=== PATIENT | male | born 1985 | race Two or more races ===

== ENCOUNTER 2024-05-08 23:19 | Emergency (ER) | payer SELFPAY ==
[2024-05-09] MEDS ORDERED: ONDANSETRON 4 MG/2 ML VIAL ONE (00:04)
[2024-05-09] MEDS ORDERED: MAGNES/ALUMIN/SIMET 30ML UCUP ONE (00:04)
[2024-05-09] MEDS ORDERED: LIDOCAINE VISCOUS 2% 10ML ORAL SOLN ONE (00:05)
[2024-05-09] MEDS ORDERED: NA CHLORIDE 0.9% 1,000 ML ONE (00:05)
[2024-05-09] MEDS ORDERED: FAMOTIDINE 20 MG/2 ML VIAL IV ONE (00:05)
[2024-05-09 00:15] LABS: Absolute Basophils 0.1 K/uL (0-0.5); Absolute Eosinophils 0.4 K/uL (0-0.5); Absolute Lymphocytes (CBC) 3.8 K/uL (0.7-4.9); Absolute Monocytes 0.8 K/uL (0.1-1.3); Absolute Neutrophil 4.6 K/uL (1.8-8.0); Basophils % 0.9 % (0-1.3); Eosinophils % 4.1 % (0-4.4); Hematocrit 46.8 % (39.6-49.0); Hemoglobin 15.5 g/dL (13.6-17.9); MCH 32.2 pg (27.0-35.0); MCHC 33.2 g/dL (32.0-36.0); Monocytes % 8.1 % (3.3-12.3); Neutrophils % 47.9 % (41.7-73.7); Platelets 180 thou/uL (152-406); RBC Red Blood Cell Count 4.83 M/uL (4.33-5.43); Red Cell Distribution Width 12.3 % (12.1-15.2); Specific Gravity < 1.005 (1.005-1.030); Urine Bilirubin NEGATIVE (Negative); Urine Blood Negative (Negative); Urine Clarity Clear (Clear); Urine Color Colorless (Yellow); Urine Glucose NEGATIVE (Negative); Urine Ketones NEGATIVE (Negative); Urine Microscopic Reflex YN NO UMIC; Urine Nitrite NEGATIVE (Negative); Urine Protein NEGATIVE (Negative); Urine Urobilinogen Normal (Normal); Urine pH 7.5 (5.0-7.0)
[2024-05-09 00:31] LABS: Albumin 4.2 g/dL (3.4-5.0); Albumin/Globulin Ratio 1.1 (1.1-1.8); Anion Gap 6.5 mEq/L (5.0-15.0); Bilirubin Total 0.9 mg/dL (0.2-1.0); Globulin 3.8 g/dL (2.3-3.5); Potassium 3.5 mEq/L (3.5-5.1)
--- NOTE | 2024-05-09 02:22 | RAD REPORT ---
EXAM: CT Abdomen and Pelvis With Intravenous Contrast CLINICAL HISTORY: Abd pain. TECHNIQUE: Axial computed tomography images of the abdomen and pelvis with intravenous contrast. Sagittal and coronal reformatted images were created and reviewed. This CT exam was performed using one or more of the following dose reduction techniques: automated exposure control, adjustment of the mA a nd/or kV according to patient size, and/or use of iterative reconstruction technique. COMPARISON: No relevant prior studies available. FINDINGS: Lung bases: Unremarkable. No mass. No consolidation. ABDOMEN: Liver: The liver is diffusely low in density compatible with steatosis. Gallbladder and bile ducts: Unremarkable. No calcified stones. No ductal dilation. Pancreas: Unremarkable. No mass. No ductal dilation. Spleen: Unremarkable. No splenomegaly. Adrenals: Unremarkable. No mass. Kidneys and ureters: Unremarkable. Normal renal cortical enhancement. No calculi. No hydronephros is. Stomach and bowel: Moderate stool. No bowel obstruction. No appreciable mucosal thickening. PELVIS: Appendix: Normal caliber appendix. No findings to suggest acute appendicitis. Bladder: The urinary bladder is distended. Reproductive: Unremarkable as visualized. ABDOMEN and PELVIS: Intraperitoneal space: Unremarkable. No free air. No significant fluid collection. Bones/joints: No acute fracture. No dislocation. Soft tissues: Small fat-containing umbilical and left inguinal hernias. Vasculature: Unremarkable. No abdominal aortic aneurysm. Lymph nodes: Unremarkable. No enlarged lymph nodes. IMPRESSION: 1. No acute inflammatory process identified within the abdomen and pelvis. 2. Other findings as above. Electronically signed by: Shi Jaramillo MD 05/09/2024 02:12 AM [email or web address] Due to temporary technical issues with the PACS/[employer] reporting system, reports are being mikey d by the in-house radiologist without review as a courtesy to ensure prompt reporting the interpreting radiologist is fully responsible for the content of the report. Transcribed Date/Time: 05/09/2024 6:48 AM
--- NOTE | 2024-05-09 02:31 | ER ---
Nurse's Notes [facility] Name: Stoney Aldrich Age: 38 yrs Sex: Male : 1985 Arrival Date: 05/08/2024 Time: 23:19 Bed 4 Private MD: Diagnosis: Epigastric pain Presentation: 05/08 23:45 Chief complaint: Patient states: left sided abdominal pain, sore throat, and vomiting lg3 X5 days. Coronavirus screen: Client denies travel out of the [place] in the last 14 days. At this time, the client does not indicate any symptoms associated with coronavirus-19. Ebola Screen: No symptoms or risks identified at this time. Risk Assessment: Do you want to hurt yourself or someone else? Patient reports no desire to harm self or others. Onset of symptoms was May 03, 2024. 23:45 Method Of Arrival: Ambulatory lg3 23:45 Acuity: RANDOLPH 3 lg3 05/09 00:24 Initial Sepsis Screen: Does the patient meet any 2 criteria? No. Patient's initial al5 sepsis screen is negative. Does the patient have a suspected source of infection? No. Patient's initial sepsis screen is negative. Triage Assessment: 05/08 23:47 General: Appears in no apparent distress. comfortable, Behavior is calm, cooperative. lg3 Pain: Complains of pain in left upper quadrant and left lower quadrant. EENT: No deficits noted. Reports pain when swallowing. Neuro: No deficits noted. [place]aver Agitation-Sedation Scale (RASS): 0 - Alert and Calm Level of Consciousness is awake, alert, obeys commands, Oriented to person, place, time, situation. Cardiovascular: No deficits noted. Denies chest pain, shortness of breath, Capillary refill < 3 seconds Clubbing of nail beds is absent JVD is absent Patient's skin is warm and dry. Respiratory: No deficits noted. Airway is patent Respiratory effort is even, unlabored, Respiratory pattern is regular, symmetrical. GI: Abdomen is round non-distended, Reports lower abdominal pain, upper abdominal pain, cramping, nausea, vomiting. : No deficits noted. No signs and/or symptoms were reported regarding the genitourinary system. Derm: No deficits noted. No signs and/or symptoms reported regarding the dermatologic system. Skin is intact, is healthy with good turgor, Skin is dry, Skin is normal, Skin temperature is warm. Musculoskeletal: No deficits noted. No signs and/or symptoms reported regarding the musculoskeletal system. Circulation, motion, and sensation intact. Range of motion: intact in all extremities. Historical: - Allergies: 23:47 No Known Allergies; lg3 - Home Meds: 23:47 None [Active]; lg3 - PMHx: 23:47 None; lg3 - PSHx: 23:47 None; lg3 - Immunization history:: Adult Immunizations up to date. - Infectious Disease History:: Denies. - Social history:: Smoking status: Patient denies any tobacco usage or history of. Patient/guardian denies using alcohol, street drugs. - Family history:: not pertinent. Screenin/08 00:23 [facility] ED Fall Risk Assessment (Adult) History of falling in the last 3 months, al5 including since admission No falls in past 3 months (0 pts) Confusion or Disorientation No (0 pts) Intoxicated or Sedated No (0 pts) Impaired Gait No (0 pts) Mobility Assist Device Used No (0 pt) Altered Elimination No (0 pt) Score/Fall Risk Level 0 - 2 = Low Risk Oriented to surroundings, Maintained a safe environment, Hourly rounding (assess needs \T\ fall precautionary measures) done. Abuse screen: Denies threats or abuse. Denies injuries from another. Nutritional screening: No deficits noted. Tuberculosis screening: No symptoms or risk factors identified. Assessment: 00:20 General: Appears in no apparent distress. Behavior is calm, cooperative. Pain: al5 Complains of pain in left lower quadrant and left upper quadrant. Neuro: Level of Consciousness is awake, alert, obeys commands, Oriented to person, place, time, situation. Cardiovascular: Capillary refill < 3 seconds Patient's skin is warm and dry. Respiratory: Airway is patent Respiratory effort is even, unlabored, Respiratory pattern is regular, symmetrical. GI: Abdomen is flat, non-distended. GI: Reports L sided abdominal pain. : No signs and/or symptoms were reported regarding the genitourinary system. EENT: No signs and/or symptoms were reported regarding the EENT system. Derm: Skin is intact, Skin is pink, warm \T\ dry. normal. Musculoskeletal: No signs and/or symptoms reported regarding the musculoskeletal system. 01:47 Reassessment: Patient appears in no apparent distress at this time. Patient and/or al5 family updated on plan of care and expected duration. Pain level reassessed. Patient is alert, oriented x 3, equal unlabored respirations, skin warm/dry/pink. Patient states feeling better. 02:50 Reassessment: Patient appears in no apparent distress at this time. No changes from al5 previously documented assessment. Patient and/or family updated on plan of care and expected duration. Pain level reassessed. Patient is alert, oriented x 3, equal unlabored respirations, skin warm/dry/pink. Vital Signs: 00:18 BP 148 / 98; Pulse 75; Resp 18; Pulse Ox 99% on R/A; al5 00:20 Temp 98.2; Weight 90.72 kg; Height 5 ft. 10 in. ; al5 00:30 BP 137 / 86; Pulse 79; Resp 18; Pulse Ox 98% on R/A; al5 01:04 BP 126 / 79; Pulse 75; Resp 18; Pulse Ox 96% on R/A; al5 01:30 BP 111 / 69; Pulse 70; Resp 18; Pulse Ox 95% on R/A; al5 02:00 BP 117 / 73; Pulse 56; Resp 18; Pulse Ox 97% on R/A; al5 02:30 BP 132 / 93; Pulse 68; Resp 18; Pulse Ox 98% on R/A; al5 00:20 Body Mass Index 28.70 (90.72 kg, 177.8 cm) al5 ED Course: 05/08 23:26 Patient arrived in ED. gm2 23:26 Tyson Miramontes MD is Attending Physician. rt 23:47 Triage completed. lg3 23:47 Arm band placed on right wrist. lg3 05/09 00:17 Treasure Erickson, BERNIE is Primary Nurse. al5 00:23 Patient has correct armband on for positive identification. Bed in low position. Call al5 light in reach. Side rails up X 1. Provided Education on: plan of care. Warm blanket given. 00:24 No provider procedures requiring assistance completed. Inserted saline lock: 20 gauge al5 in right antecubital area, using aseptic technique. Blood collected. Flushed with 10 mL NS. 00:49 CT Abd/Pelvis - IV Contrast Only In Process Unspecified. EDMS 02:30 Oleg Sandoval MD is Referral Physician. rt 02:53 IV discontinued, intact, bleeding controlled, No redness/swelling at site. Pressure al5 dressing applied. Administered Medications: 00:17 Drug: NS 0.9% IV 1000 ml IV at 1 bolus Per protocol; 1000 mL bolus Route: IV; Rate: 1 al5 bolus; Site: right antecubital; 01:47 Follow up: Response: No adverse reaction; IV Status: Completed infusion; IV Intake: al5 1000ml 00:18 Drug: Famotidine IVP 20 mg IVP once; dilute with 10 mL 0.9% NaCl; give over 2 minutes al5 Route: IVP; Site: right antecubital; :47 Follow up: Response: No adverse reaction; Pain is decreased al5 00:18 Drug: GI Cocktail without - (Maalox PO 30 ml, Lidocaine Mucous Membrane 2 % 15 al5 ml) PO once Route: PO; 01:47 Follow up: Response: No adverse reaction; Pain is decreased al5 00:18 Drug: Ondansetron IVP 4 mg IVP once; over 2 minutes Route: IVP; Site: right antecubital;al5 01:47 Follow up: Response: No adverse reaction; Nausea is decreased al5 Medication: 00:24 VIS not applicable for this client. al5 Intake: 01:47 IV: 1000ml; Total: 1000ml. al5 Outcome: 02:30 Discharge ordered by . rt 02:53 Discharged to home ambulatory, al5 02:53 Condition: good 02:53 Discharge instructions given to patient, Instructed on discharge instructions, follow up and referral plans. medication usage, Demonstrated understanding of instructions, follow-up care, medications, Prescriptions given X 3, 02:53 Patient left the ED. al5 Signatures: Dispatcher [employer] EDMS Sandrita Zaidi RN RN lg3 Tyson Miramontes MD MD rt Leonila Mcfarlane gm2 Treasure Erickson RN RN al5
--- NOTE | 2024-05-09 02:31 | EDPHYS ---
Physician Documentation [facility] Name: Stoney Aldrich Age: 38 yrs Sex: Male : 1985 Arrival Date: 05/08/2024 Time: 23:19 Bed 4 Private MD: ED Physician Tyson Miramontes HPI: 05/09 00:12 This 38 yrs old [place] Male presents to ER via Ambulatory with complaints of Left rt side abd pain. 00:12 History is limited due to language barrier. Attempted to obtain the [place] rt credit charge authorizer the credit charge authorizer iPad, however, they stated that they had no [place] credit charge authorizer is available. Patient is unable to understand basic Serbian. Reports that for the past 5 days he has had a left-sided abdominal pain with nausea and vomiting as well as a sore throat. Denies other acute complaints at this time. Symptoms are moderate in severity, no other aggravating elevating factors.. Historical: - Allergies: 05/08 23:47 No Known Allergies; lg3 - Home Meds: 23:47 None [Active]; lg3 - PMHx: 23:47 None; lg3 - PSHx: 23:47 None; lg3 - Immunization history:: Adult Immunizations up to date. - Infectious Disease History:: Denies. - Social history:: Smoking status: Patient denies any tobacco usage or history of. Patient/guardian denies using alcohol, street drugs. - Family history:: not pertinent. ROS: 05/09 00:12 Constitutional: Negative for fever, chills, and weight loss, Cardiovascular: Negative rt for chest pain, palpitations, and edema, Respiratory: Negative for shortness of breath, cough, wheezing, and pleuritic chest pain, MS/Extremity: Negative for injury and deformity, Skin: Negative for injury, rash, and discoloration, Neuro: Negative for headache, weakness, numbness, tingling, and seizure, Abdomen/GI: Positive for abdominal pain, nausea and vomiting, Exam: 00:12 Constitutional: This is a well developed, well nourished patient who is awake, alert, rt and in no acute distress. Head/Face: Normocephalic, atraumatic. Chest/axilla: Normal chest wall appearance and motion. Nontender with no deformity. No lesions are appreciated. Cardiovascular: Regular rate and rhythm with a normal S1 and S2. No gallops, murmurs, or rubs. Normal PMI, no JVD. No pulse deficits. Respiratory: Lungs have equal breath sounds bilaterally, clear to auscultation and percussion. No rales, rhonchi or wheezes noted. No increased work of breathing, no retractions or nasal flaring. Abdomen/GI: Soft, non-tender, with normal bowel sounds. No distension or tympany. No guarding or rebound. No evidence of tenderness throughout. Skin: Warm, dry with normal turgor. Normal color with no rashes, no lesions, and no evidence of cellulitis. MS/ Extremity: Pulses equal, no cyanosis. Neurovascular intact. Full, normal range of motion. Neuro: Awake and alert, GCS 15, oriented to person, place, time, and situation. Cranial nerves II-XII grossly intact. Motor strength 5/5 in all extremities. Sensory grossly intact. Cerebellar exam normal. Normal gait. Vital Signs: 00:18 BP 148 / 98; Pulse 75; Resp 18; Pulse Ox 99% on R/A; al5 00:20 Temp 98.2; Weight 90.72 kg; Height 5 ft. 10 in. ; al5 00:30 BP 137 / 86; Pulse 79; Resp 18; Pulse Ox 98% on R/A; al5 01:04 BP 126 / 79; Pulse 75; Resp 18; Pulse Ox 96% on R/A; al5 01:30 BP 111 / 69; Pulse 70; Resp 18; Pulse Ox 95% on R/A; al5 02:00 BP 117 / 73; Pulse 56; Resp 18; Pulse Ox 97% on R/A; al5 02:30 BP 132 / 93; Pulse 68; Resp 18; Pulse Ox 98% on R/A; al5 00:20 Body Mass Index 28.70 (90.72 kg, 177.8 cm) al5 MDM: 05/08 23:31 Patient medically screened. rt 05/09 02:49 Differential Diagnosis Gastritis, pancreatitis, diverticulitis. Data reviewed: vital rt signs, nurses notes, lab test result(s), EKG, radiologic studies. I considered the following discharge prescriptions or medication management in the emergency department Medications were administered in the Emergency Department. See MAR. Independent interpretation of the following test(s) in the Emergency Department CT Scan: My interpretation is No bowel obstruction seen on interpretation of CT scan images. Test considered but Not performed: Ultrasound Low suspicion for gallbladder pathology, ultrasound not indicated. Counseling: I had a detailed discussion with the patient and/or guardian regarding the historical points, exam findings, and any diagnostic results supporting the discharge/admit diagnosis, lab results, radiology results, the need for outpatient follow up, to return to the emergency department if symptoms worsen or persist or if there are any questions or concerns that arise at home. Response to treatment: the patient's symptoms have markedly improved after treatment. 05/08 23:42 Order name: CBC with Diff; Complete Time: 00:33 rt 05/08 23:42 Order name: CMP; Complete Time: 00:33 rt 05/08 23:42 Order name: Lipase; Complete Time: 00:33 rt 05/08 23:42 Order name: Urinalysis w/ reflexes; Complete Time: 00:33 rt 05/08 23:42 Order name: CT Abd/Pelvis - IV Contrast Only rt 05/08 23:42 Order name: IV Saline Lock; Complete Time: 00:17 rt 05/08 23:42 Order name: Labs collected and sent; Complete Time: 00:17 rt Administered Medications: 00:17 Drug: NS 0.9% IV 1000 ml IV at 1 bolus Per protocol; 1000 mL bolus Route: IV; Rate: 1 al5 bolus; Site: right antecubital; :47 Follow up: Response: No adverse reaction; IV Status: Completed infusion; IV Intake: al5 1000ml 00:18 Drug: Famotidine IVP 20 mg IVP once; dilute with 10 mL 0.9% NaCl; give over 2 minutes al5 Route: IVP; Site: right antecubital; :47 Follow up: Response: No adverse reaction; Pain is decreased al5 00:18 Drug: GI Cocktail without - (Maalox PO 30 ml, Lidocaine Mucous Membrane 2 % 15 al5 ml) PO once Route: PO; :47 Follow up: Response: No adverse reaction; Pain is decreased al5 00:18 Drug: Ondansetron IVP 4 mg IVP once; over 2 minutes Route: IVP; Site: right antecubital;al5 01:47 Follow up: Response: No adverse reaction; Nausea is decreased al5 Disposition Summary: 05/09/24 02:30 Discharge Ordered Notes: Location: Home rt Problem: new rt Symptoms: have improved rt Condition: Stable rt Diagnosis - Epigastric pain rt Followup: rt - With: Oleg Sandoval MD - When: 2 - 3 days - Reason: Discharge Instructions: - Discharge Summary Sheet rt - Abdominal Pain, Adult rt Forms: - Medication Reconciliation Form rt - Antibiotic Education rt - Prescription Opioid Use rt - Patient Portal Instructions rt - Leadership Thank You Letter rt Prescriptions: - Carafate 100 mg/mL Oral suspension - take 10 milliliter ORAL route 3 times per day as needed for abdominal pain; 150 rt milliliter; Refills: 0, Product Selection Permitted - ondansetron 4 mg Oral Tablet,disintegrating - take 1 tablet ORAL route every 6 hours as needed for nausea; 18 tablet; rt Refills: 0, Product Selection Permitted - Protonix 40 mg Oral Tablet - take 1 tablet ORAL route once daily; 30 tablet; Refills: 0, Product Selection rt Permitted Signatures: Dispatcher [employer] Sandrita Barger RN RN lg3 Tyson Miramontes MD MD rt Treasure Erickson RN RN al5
[2024-05-09 03:07] VITALS: TEMP 98.2
[2024-05-09 03:17] VITALS: BP 132/93; O2SAT 98
== END 2024-05-09 02:53 | disposition home or self-care (01) ==
LOC: ER 23:19
DX: R10.13 Epigastric pain (principal); R10.32 Left lower quadrant pain
CPT/HCPCS: 36415; 74177; 80053; 81003; 83690; 85025; 96361; 96374; 96375; 99284; J2405; J7030; Q9967